=== PATIENT | male | born 1975 | race Hispanic/Latino ===

== ENCOUNTER 2019-03-17 08:19 | Day surgery (SDC) | payer BC ==
[2019-03-17] VITALS (7 sets, daily range): BP systolic 111–125; BP diastolic 60–84
[~2019-03-17] VITALS: Ht 172.7 cm; Wt 75.3 kg
--- NOTE | 2019-03-17 09:05 | NUR ---
PRE-PROCEDURE RECEIVED FROM HOME VIA WALKING TO DAY 8 FOR SCHEDULED US GUIDED LIVER BX. PT ACCOMPANIED BY . AWAKE IN NO ACUTE DISTRESS. DENIES PAIN. ORIENTED TO ROOM. STRETCHER IN LOWEST POSITION,SIDE RAILS UP X2, CALL LIGHT W/IN REACH.
--- NOTE | 2019-03-17 09:29 | NUR ---
PROCEDURE PT TRANSFERRED TO RADIOLOGY FOR US GUIDED LIVER BX VIA STRETCHER BY AMY PERSAUD. AWAKE IN NO ACUTE DISTRESS.
[2019-03-17] MEDS ORDERED: FENTANYL CITRATE PF 50 MCG/1 ML 2ML VIAL ONE (09:38)
[2019-03-17] MEDS ORDERED: MIDAZOLAM HCL 1 MG/ML 2ML VIAL ONE (09:39)
[2019-03-17 09:43] LABS: INR 1.03 (0.85-1.15); PARTIAL THROMBOPLASTIN TIME 29.7 SEC (26.3-35.5); PROTHROMBIN TIME 10.8 SEC (9.6-11.6)
--- NOTE | 2019-03-17 10:15 | NUR ---
U/S GD LIVER BX RANDOM SITE PROCEDURE PERFORMED BY DR Paramjit CHIRINOS. PUNCTURE SITE RUQ AND PATIENT TOLERATED PROCEDURE WELL. SPECIMEN X 3 COLLECTED AND SENT TO LAB. END OF PROCEDURE AT 1000. FLOSEAL INJECTED TO PUNCTURE SITE. BIOPSY NEEDLE REMOVED AND DRESSING APPLIED. NO BLEEDING NOTED. REPORT GIVEN TO Paramjit NASH RN AND PATIENT TRANSPORTED TO DAY PATIENT RM 8 VIA STRETCHER AT 1015. AAO X3 WITH NO C/O PAIN.
--- NOTE | 2019-03-17 10:20 | NUR ---
POST-PROCEDURE RECEIVED VIA STRETCHER POST US GUIDED LIVER BX BY AMY PERSAUD. AWAKE IN NO ACUTE DISTRESS.CONNECTED TO CONTINUOUS CARDIOPULMONARY MONITORING. DENIES PAIN. 4X4, TEGADERM DRESSING TO LEFT UPPER ABDOMEN CLEAN, DRY, AND INTACT. EDUCATED ON BEDREST X1 HOUR AND OBSERVATION FOR AN ADDITIONAL HOUR. PT AND VERBALIZED UNDERSTANDING. STRETCHER IN LOWEST POSITION, CALL LIGHT W/IN REACH, BED IN LOWEST POSITION.
--- NOTE | 2019-03-17 11:29 | NUR ---
ACTIVITY UP TO CHAIR W/ STANDBY ASSIST OF1. GAIT STEADY. DENIES PAIN. 4X4, TEGADERM DRESSING TO LEFT UPPER ABDOMEN CLEAN, DRY, AND INTACT.
--- NOTE | 2019-03-17 11:30 | NUR ---
DIET AT 100% OF LUNCH TRAY.
--- NOTE | 2019-03-17 12:40 | NUR ---
DISCHARGE DAY PT DISCHARGE INSTRUCTION SHEET, RADIOLOGY DISCHARGE INSTRUCTION SHEET REVIEWED WITH PT AND . EDUCATED TO RETURN TO ER FOR EXCESSIVE BLEEDING TO BIOPSY SITE OR SEVERE PAIN, KEEP DRESSING CLEAN, DRY, AND INTACT [id number], KEEP PHYSICAL EXERTION TO A MINIMUM, AND AVOID ASPIRIN CONTAINING PRODUCTS. BOTH VERBALIZED UNDERSTANDING. OPPORTUNITY GIVEN TO ASK QUESTIONS. NO QUESTIONS OR CONCERNS VOICED.
--- NOTE | 2019-03-17 12:45 | NUR ---
DISCHARGE DISCHARGED VIA W/C. AWAKE IN NO ACUTE DISTRESS. DENIES PAIN. DRESSING TO RUQ ABDOMEN CLEAN, DRY, AND INTACT.
== END 2019-03-17 12:45 | disposition home or self-care (01) ==
LOC: DAH 08:19
PROVIDERS: ATTEND Internal Medicine Gastroenterology
DX: K72.90 Hepatic failure, unspecified without coma (principal); K74.60 Unspecified cirrhosis of liver; E78.5 Hyperlipidemia, unspecified; Z79.899 Other long term (current) drug therapy; Z98.890 Other specified postprocedural states
CPT/HCPCS: 36415; 47000; 76942; 85610; 85730; 88307; A4215; A4606; C2615; J2250; J3010; 99152

== ENCOUNTER → 2020-12-24 | Outpatient (CLI) | payer BC | END | disposition home or self-care (01) | LOC: RAH 07:45 | PROVIDERS: ATTEND Orthopaedic Surgery | DX: S83.241A Other tear of medial meniscus, current injury, right knee, initial encounter (principal); X58.XXXA Exposure to other specified factors, initial encounter; Y93.89 Activity, other specified; Y92.89 Other specified places as the place of occurrence of the external cause; Y99.8 Other external cause status | CPT/HCPCS: 73721 ==